=== PATIENT | female | born 1995 | race Caucasian/White ===

== ENCOUNTER 2017-09-26 17:45 | Emergency (ER) | payer MEDICAID, OTHER ==
[~2017-09-26] VITALS: Ht 149.9 cm; Wt 39.9 kg
[2017-09-26 17:48] VITALS: BP_SYST 94
== END 2017-09-26 18:30 | disposition home or self-care (01) ==
LOC: SED 17:45
DX: B86 Scabies (principal)
CPT/HCPCS: 99282

== ENCOUNTER 2017-09-28 17:26 | Emergency (ER) | payer OTHER ==
[~2017-09-28] VITALS: Ht 149.9 cm; Wt 38.6 kg
[2017-09-28 17:33] VITALS: BP_SYST 117
== END 2017-09-28 18:35 | disposition home or self-care (01) ==
LOC: SED 17:26
DX: O26.892 Other specified pregnancy related conditions, second trimester (principal); B86 Scabies; Z3A.17 17 weeks gestation of pregnancy
CPT/HCPCS: 99282

== ENCOUNTER 2017-10-24 09:30 | Observation (INO) | payer OTHER ==
[~2017-10-24] VITALS: Ht 149.9 cm; Wt 39.0 kg
== END 2017-10-24 12:00 | disposition home or self-care (01) ==
LOC: SPU 09:30
PROVIDERS: ADMIT Obstetrics & Gynecology; ATTEND Obstetrics & Gynecology
DX: O99.89 Other specified diseases and conditions complicating pregnancy, childbirth and the puerperium (principal); M54.5 Low back pain; Z3A.21 21 weeks gestation of pregnancy
CPT/HCPCS: 81002; G0378

== ENCOUNTER 2017-11-01 21:55 | Observation (INO) | payer OTHER | END 2017-11-01 23:55 | disposition home or self-care (01) | LOC: SPU 21:55 | PROVIDERS: ADMIT Specialist; ATTEND Specialist | DX: O99.89 Other specified diseases and conditions complicating pregnancy, childbirth and the puerperium (principal); M54.5 Low back pain; Z3A.23 23 weeks gestation of pregnancy | CPT/HCPCS: 81002; G0378 ==

== ENCOUNTER 2018-02-20 12:49 | Emergency (ER) | payer OTHER ==
[~2018-02-20] VITALS: Ht 149.9 cm; Wt 47.2 kg
[2018-02-20 13:02] VITALS: BP_SYST 129
[2018-02-20] MEDS ORDERED: ALBUTEROL SULFATE 0.083% 2.5 MG/3 ML VIAL.NEB IH ONE (13:45)
[2018-02-20] MEDS ORDERED: PREDNISONE 20 MG TABLET PO ONE (13:45)
[2018-02-20] MEDS ORDERED: IPRATROPIUM BROM 0.5 MG/2.5 ML VIAL.NEB (ATROVENT) IH ONE (13:45)
[2018-02-20 14:30] VITALS: BP_SYST 129
== END 2018-02-20 14:30 | disposition home or self-care (01) ==
LOC: SED 12:49
DX: O99.513 Diseases of the respiratory system complicating pregnancy, third trimester (principal); J20.9 Acute bronchitis, unspecified; Z3A.38 38 weeks gestation of pregnancy; Z86.2 Personal history of diseases of the blood and blood-forming organs and certain disorders involving the immune mechanism
CPT/HCPCS: 94640; 99283; J7512; J7613

== ENCOUNTER 2018-03-29 18:01 | Emergency (ER) | payer OTHER ==
[~2018-03-29] VITALS: Ht 149.9 cm; Wt 38.6 kg
[2018-03-29 18:04] VITALS: BP_SYST 125
[2018-03-29 19:00] VITALS: BP_SYST 125
[2018-03-29] MEDS ORDERED: LORazepam 1 MG TABLET PO ONE (19:00)
== END 2018-03-29 19:00 | disposition home or self-care (01) ==
LOC: SED 18:01
DX: F41.9 Anxiety disorder, unspecified (principal); R03.0 Elevated blood-pressure reading, without diagnosis of hypertension
CPT/HCPCS: 99283

== ENCOUNTER 2018-04-29 16:12 | Emergency (ER) | payer OTHER ==
[~2018-04-29] VITALS: Ht 149.9 cm; Wt 38.6 kg
[2018-04-29 16:21] VITALS: BP_SYST 114
[2018-04-29] MEDS: KETOROLAC TROMETHAMINE 15 MG VIAL IM ONE ×2 (17:39→17:47)
[2018-04-29] MEDS ORDERED: HYDROcodone/ACETAMIN 5-325 MG TAB (NORCO/ VICODIN) PO ONE (18:00)
[2018-04-29 18:30] VITALS: BP_SYST 122
== END 2018-04-29 18:30 | disposition home or self-care (01) ==
LOC: SED 16:12
DX: K05.10 Chronic gingivitis, plaque induced (principal); K08.89 Other specified disorders of teeth and supporting structures; Z86.2 Personal history of diseases of the blood and blood-forming organs and certain disorders involving the immune mechanism
CPT/HCPCS: 99283; J1885

== ENCOUNTER 2018-10-22 10:17 | Emergency (ER) | payer OTHER ==
[~2018-10-22] VITALS: Ht 149.9 cm; Wt 40.8 kg
[2018-10-22 10:17] VITALS: BP_SYST 99
[2018-10-22 11:30] VITALS: BP_SYST 99
== END 2018-10-22 11:30 | disposition home or self-care (01) ==
LOC: SED 10:17
DX: R05 Cough (principal); Z86.2 Personal history of diseases of the blood and blood-forming organs and certain disorders involving the immune mechanism
CPT/HCPCS: 99281

== ENCOUNTER 2019-04-29 08:44 | Emergency (ER) | payer OTHER ==
[~2019-04-29] VITALS: Ht 149.9 cm; Wt 36.3 kg
[2019-04-29 08:45] VITALS: BP_SYST 100
--- NOTE | 2019-04-29 09:53 | NUR ---
PT DID NOT WANT TO WAIT, EXPLAINED THAT ULTRASOUND WAS ORDERED.
== END 2019-04-29 09:53 | disposition left against medical advice (07) ==
LOC: SED 08:44
DX: O26.891 Other specified pregnancy related conditions, first trimester (principal); R10.2 Pelvic and perineal pain; Z3A.10 10 weeks gestation of pregnancy; Z53.21 Procedure and treatment not carried out due to patient leaving prior to being seen by health care provider

== ENCOUNTER 2024-01-22 18:30 | Emergency (ER) | payer OTHER ==
[~2024-01-22] VITALS: Ht 149.9 cm; Wt 34.0 kg
[2024-01-22 18:33] VITALS: BP_SYST 97; PULSE 90; RESP 17; TEMP 97.8; O2SAT 98
[2024-01-22] MEDS ORDERED: AMOX-423 PO (18:57)
[2024-01-22 19:14] VITALS: BP_SYST 97; PULSE 90; RESP 17; TEMP 97.8; O2SAT 98
== END 2024-01-22 19:11 | disposition home or self-care (01) ==
LOC: SED 18:30
DX: J01.10 Acute frontal sinusitis, unspecified (principal); R09.89 Other specified symptoms and signs involving the circulatory and respiratory systems; R05.9 Cough, unspecified; Z79.2 Long term (current) use of antibiotics
CPT/HCPCS: 99283